=== PATIENT | female | born 1970 | race Two or more races ===

== ENCOUNTER 2024-05-22 06:30 | Day surgery (SDC) | payer OTHER ==
[~2024-05-22 06:30] MED LIST: COZAAR50 MG PO; METFORMIN HCL500 M3 PO
[2024-05-22] MEDS ORDERED: CEFAZOLIN SODIUM 1,000 MG VIAL ONE (09:14)
[2024-05-22] MEDS ORDERED: POVIDONE-IODINE 118 ML BOTT TOP ONE (09:18)
== END 2024-05-22 14:55 | disposition home or self-care (01) ==
LOC: CIR.AMB 06:30
PROVIDERS: ATTEND Obstetrics & Gynecology
DX: N84.0 Polyp of corpus uteri (principal); I10 Essential (primary) hypertension; J45.909 Unspecified asthma, uncomplicated; E11.9 Type 2 diabetes mellitus without complications